=== PATIENT | male | born 1980 | race Caucasian/White ===

== ENCOUNTER 2016-10-28 19:20 | Emergency (ER) | payer OTHER ==
[~2016-10-28] VITALS: Ht 165.1 cm; Wt 66.8 kg
[~2016-10-28 19:20] MED LIST: MOTRIN800 MG PO; NORCO 7.5/321 TABLET PO
[2016-10-29 03:29] VITALS: BP 127/81
== END 2016-10-29 03:31 | disposition left against medical advice (07) ==
LOC: EME 19:20
DX: T40.1X1A Poisoning by heroin, accidental (unintentional), initial encounter (principal); Z88.5 Allergy status to narcotic agent; F17.200 Nicotine dependence, unspecified, uncomplicated
CPT/HCPCS: 99281; 99283; J2310